=== PATIENT | male | born 1990 | race Caucasian/White ===

== ENCOUNTER 2016-06-11 00:53 | Observation (INO) | payer BC ==
[2016-06-11 01:42] LABS: BASO # 0.1 K/uL (0.0-0.2); BASO % 0.5 % (0.0-2.0); EOS # 0.2 K/uL (0.0-0.7); EOS % 1.6 % (0.0-4.0); HEMATOCRIT 43.5 % (35.0-51.0); LYMPH # 2.2 K/uL (1.0-4.3); LYMPH % 21.1 % (20.0-40.0); MEAN CELL VOLUME 88.8 fl (80.0-94.0); MEAN CORPUSCULAR HEMOGLOBIN 29.3 pg (27.0-31.0); MEAN CORPUSCULAR HGB CONC 32.9 g/dL (33.0-37.0); MEAN PLATELET VOLUME 9.1 fl (7.2-11.7); MONO # 0.8 K/uL (0.0-0.8); MONO % 7.6 % (0.0-10.0); NEUT # 7.3 K/uL (1.8-7.0); NEUT % 69.2 % (50.0-75.0); RED CELL DISTRIBUTION WIDTH 13.9 % (11.5-14.5); WHITE BLOOD COUNT 10.5 K/uL (4.8-10.8)
[2016-06-11 01:54] LABS: ALB/GLOB RATIO 1.2 (1.0-2.1); ALCOHOL SERUM 245 mg/dl (0-10); ALKALINE PHOSPHATASE 69 U/L (38-126); ALT/SGPT 28 U/L (21-72); AST/SGOT 43 U/L (17-59); BILIRUBIN,TOTAL 0.5 mg/dl (0.2-1.3); BLOOD UREA NITROGEN 15 mg/dl (9-20); CALCIUM 9.2 mg/dL (8.4-10.2); CARBON DIOXIDE 21 mmol/L (22-30); CHLORIDE 104 mmol/L (98-107); GFR AFRICAN-AMERICAN > 60; GLUCOSE,RANDOM 118 mg/dL (75-110); POTASSIUM 3.7 MMOL/L (3.6-5.0); SODIUM 146 mmol/l (132-148)
--- NOTE | 2016-06-11 02:34 | ED PDOC ---
HPI: Psych/Substance Abuse Time Seen by Provider: 06/11/16 01:10 Chief Complaint (Nursing): Alcohol Ingestion Chief Complaint (Provider): Alcohol ingestion ED Caveat: Intoxicated History Per: EMS History/Exam Limitations: intoxication Onset/Duration Of Symptoms: Mins, Hrs Current Symptoms Are (Timing): Still Present Suicide/Self Injury Attempted (Context): None Modifying Factor(s): Alcohol Additional History Per: EMS Additional Complaint(s): The pt is a 26yo male, brought to the ED by EMS for evaluation s/p discovering pt intoxicated in public. Per EMS, pt is arousable but combative. Due to his intoxicated state, a full history is unavailable. Past Medical History Reviewed: Historical Data, Nursing Documentation, Vital Signs Vital Signs: Last Vital Signs Temp 98.7 F 06/11/16 01:34 Pulse 82 06/11/16 01:34 Resp 16 06/11/16 01:34 BP 117/69 06/11/16 01:34 Pulse Ox 97 06/11/16 01:34 - Family History Family History: States: Unknown Family Hx - Allergies Allergies/Adverse Reactions: Allergies Allergy/AdvReac Type Severity Reaction Status Date / Time No Known Allergies Allergy Verified 04/18/14 03:09 Review of Systems ROS Statement: Except As Marked, All Systems Reviewed And Found Negative Review Of Systems: ROS cannot be obtained secondary to pt's inabilty to answer questions. Psych: Positive for: Other (alcohol use) Physical Exam - Reviewed Nursing Documentation Reviewed: Yes Vital Signs Reviewed: Yes - Physical Exam Appears: Positive for: Well, Non-toxic, No Acute Distress Head Exam: Positive for: ATRAUMATIC, NORMAL INSPECTION, NORMOCEPHALIC Eye Exam: Positive for: PERRL Cardiovascular/Chest: Positive for: Regular Rate, Rhythm Respiratory: Positive for: Normal Breath Sounds. Negative for: Respiratory Distress Neurologic/Psych: Positive for: Mood/Affect (slurred speech), Gait (unsteady) - Laboratory Results Result Diagrams: 06/11/16 01:30 06/11/16 01:30 - ECG O2 Sat by Pulse Oximetry: 97 Medical Decision Making Medical Decision Making: Time: 129 Impression: Alcohol intoxication Plan: -- drug screen -- Pt to be placed under observation for clinical sobriety --Reassess Scribe Attestation: Documented by Kenyatta Og acting as a scribe for Raphael Pepper MD. Provider Attestation: All medical record entries made by the Scribe were at my direction and personally dictated by me. I have reviewed the chart and agree that the record accurately reflects my personal performance of the history, physical exam, medical decision making, and the department course for this patient. I have also personally directed, reviewed, and agree with the discharge instructions and disposition. ED OBSERVATION Date of observation admission: 06/11/16 Time of observation admission: 01:25 - Observation admission statement Patient is being placed in observation because:: Pt is intoxicated - Goals of Observation Goals of observation are:: Awaiting clinical sobriety. - Progress Note Progress Note: 06/11/16 01:26 Pt resting in room, vitals stable. 06/11/16 03:23 Pt resting in room, no changes. 06/11/16 04:30 Face to face encounter with pt. Pt is combative and needs to be restrained for concerns of safety due to substance induced psychosis. Ativan and Haldol given. Disposition - Clinical Impression Clinical Impression: Alcohol abuse with uncomplicated intoxication - Patient ED Disposition Is Patient to be Admitted: Transfer of Care - Disposition Disposition: Transfer of Care Disposition Time: 07:00 Condition: STABLE Patient Signed Over To: Wander Tirado Handoff Comments: pending sobriety
[2016-06-11 07:46] VITALS: BP 121/65; PULSE 75; RESP 16; TEMP 97.6
--- NOTE | 2016-06-11 09:44 | ED PDOC ---
- Laboratory Results Result Diagrams: 06/11/16 01:30 06/11/16 01:30 - ECG O2 Sat by Pulse Oximetry: 95 - Progress Re-evaluation Time: 09:44 Condition: Improved (Awake alert no focal neuro deficits) Disposition - Clinical Impression Clinical Impression: Alcohol abuse with uncomplicated intoxication - POA Present On Arrival: None - Disposition Disposition: Routine/Home Disposition Time: 09:44 Condition: FAIR
[2016-06-12 14:49] VITALS: O2SAT 97
== END 2016-06-11 09:48 | disposition home or self-care (01) ==
LOC: H.ER 00:53 → H.EROBSV 01:25
PROVIDERS: ADMIT Emergency Medicine; ATTEND Emergency Medicine
DX: F10.120 Alcohol abuse with intoxication, uncomplicated (principal); Y90.8 Blood alcohol level of 240 mg/100 ml or more
CPT/HCPCS: 80053; 82948; 85025; 96372; 99285; G0378; G0480; J1630; J2060